=== PATIENT | female | born 1965 | race Caucasian/White ===

== ENCOUNTER 2019-04-24 07:57 | Day surgery (SDC) | payer OTHER ==
[~2019-04-24 07:57] MED LIST: ASPI81TA50 PO; ATOR10TA60 PO; HYDROmorphone 2 MG/ML VIAL IV PRN; IV RINGERS,LACTATED 1000ML 1,000 ML IV SCH; LIDOCAINE 1% PF 2 ML VIAL. ID PRN; MORPHINE SULFATE 2 MG/ML VIAL. IV PRN; OMEP20TA8 PO; ONDANSETRON PF 4 MG/2 ML VIAL. IV PRN; PROCHLORPERAZINE 10 MG/2 ML VIAL. IV PRN; fentaNYL PF VIAL 100 MCG/2 ML VIAL IV PRN
[2019-04-24] MEDS ORDERED: fentaNYL PF VIAL 100 MCG/2 ML VIAL ONE (09:23)
[2019-04-24] MEDS ORDERED: LIDOCAINE 2% PF 5 ML VIAL. ONE (09:23)
[2019-04-24] MEDS ORDERED: PROPOFOL 20 ML IV ONE (09:23)
[2019-04-24] MEDS ORDERED: ONDANSETRON PF 4 MG/2 ML VIAL. ONE (09:24)
[2019-04-24] MEDS ORDERED: DEXAMETHASONE SOD PHOS 4 MG/ML VIAL ONE (09:24)
[2019-04-24] MEDS ORDERED: BUPIVACAINE MPF 0.5% 30 ML VIAL. ONE (10:01)
[2019-04-24] MEDS ORDERED: SEVOFLURANE 31 TO 60 MINUTES. IH ONE (10:02)
[2019-04-24] MEDS ORDERED: ePHEDrine PF IN SALINE 50 MG/10 ML SYRINGE. IV ONE (10:11)
[2019-04-24] MEDS ORDERED: HYDR-3165 PO (10:29)
--- NOTE | 2019-04-24 10:30 | DISCH ---
DISCHARGE INSTRUCTIONS Condition on Discharge Condition on Discharge: Stable Activity After Discharge Activity Instructions for Disc: Other, see below Lifting Instructions after Dis: No pulling or pushing (no hard grasp or lifting fine motor use of right arm only) Driving Instructions after Dis: Do not drive Weight Bearing Status after Di: Other, see below Diet after Discharge Diet after Discharge: Regular Wound Incision Care Wound/Incision Care: Change dressing (May remove outer dressings in 2 days may then shower keep butterfly strips intact), Other, see below Contacting the DRColton after DC Call your doctor for: Concerns you may have Follow-Up Follow up with: Dr. Jain 10 days ROGELIO JAIN MD Apr 24, 2019 10:30
--- NOTE | 2019-04-24 10:35 | PDOC4 ---
Operative Note Operative Note Date of surgery: 04/24/2019 Preoperative diagnosis: Refractory lateral epicondylitis right elbow with partial tear of extensor origin Postoperative diagnosis: Same Operative procedure: Right elbow extensor origin debridement and repair Surgeon: Cristobal Anesthesia: Gen. Estimated blood loss: 2 mL Complications: None Operative indications: Please see my clinic notes for detailed operative indications and note that the patient has had refractory chronic lateral epicondylitis unresponsive to injection physical therapy and nonoperative management. She did have an MRI which showed a partial tear of the extensor origin and we had talked about the possibility of debridement and repair including risks of continued pain nonhealing nerve or blood vessel damage infection medical or other anesthetic consultations among others she would agrees to proceed with surgical evaluation and treatment Operative text: Patient was identified procedure verified patient placed in the supine position on the operating table. After adequate amounts of general anesthesia were administered the right upper extremity was prepped and draped in standard sterile fashion with an arm tourniquet. After timeout was performed patient procedure identified and verified the right upper extremity was exsanguinated by Esmarch bandage tourniquet inflated to 250 mm mercury and an incision was made centered over the lateral epicondyle and extensor origin. Dissection was carried out down to the extensor origin and a flap of tissue was elevated from the bone and underlying degenerated partially torn tissue was debrided and the bony origin was debrided back to good bleeding bone and the extensor origin remnant was sewn back to each edge with 2-0 Vicryl suture irrigation carried out normal saline solution subcutaneous closure with 2-0 Vicryl suture subcuticular 3-0 Monocryl Steri-Strips and Mastisol were applied half percent plain Marcaine was instilled around the wound bed and sterile dressings were applied fingers were noted be warm pink find deflation of tourniquet patient was returned recovery room in stable condition having tolerated procedure well ROGELIO MOSQUERA MD Apr 24, 2019 10:35
[2019-04-24 11:10] VITALS: BP 114/73
[2019-04-24] MEDS ORDERED: HYDROcodone/APAP 7.5/325MG 1 TAB TABLET PO ONE ×2 (11:15)
== END 2019-04-24 11:40 | disposition home or self-care (01) ==
LOC: SURG 07:57
PROVIDERS: ATTEND Orthopaedic Surgery
DX: M77.11 Lateral epicondylitis, right elbow (principal); E78.00 Pure hypercholesterolemia, unspecified; I25.2 Old myocardial infarction; K21.9 Gastro-esophageal reflux disease without esophagitis; Z98.890 Other specified postprocedural states; Z87.891 Personal history of nicotine dependence
CPT/HCPCS: 24359; A7015; J0171; J0690; J1100; J2001; J2405; J2704; J3010; J3490; A4461